=== PATIENT | male | born 1960 | race African-American/Black ===

== ENCOUNTER 2020-07-03 10:53 | Emergency (ER) | payer BC ==
[~2020-07-03] VITALS: Ht 185.4 cm; Wt 104.3 kg
[~2020-07-03 10:53] MED LIST: ASPIR 8181 M1 PO; LISINOPRIL20 MG PO; METFORMIN HCL500 MG PO; NORCO 5-325 TA1 EACH PO
[2020-07-03] MEDS ORDERED: GLYXAMBI 10 MG1 EACH PO (11:00)
[2020-07-03] MEDS ORDERED: ATORVASTATIN CA80 MG PO (11:00)
[2020-07-03] MEDS ORDERED: FLEXERIL PO (11:32)
[2020-07-03] MEDS ORDERED: ALEVE220 M1 PO (11:32)
[2020-07-03 11:50] VITALS: BP 137/81
== END 2020-07-03 11:55 | disposition home or self-care (01) ==
LOC: ER 10:53
DX: M54.41 Lumbago with sciatica, right side (principal); E11.9 Type 2 diabetes mellitus without complications; I10 Essential (primary) hypertension; E78.00 Pure hypercholesterolemia, unspecified; Z79.899 Other long term (current) drug therapy